=== PATIENT | female | born 1995 | race Two or more races ===

== ENCOUNTER 2018-06-06 23:55 | Emergency (ER) | payer OTHER ==
[~2018-06-06] VITALS: Ht 157.5 cm; Wt 107.9 kg
[2018-06-07 00:01] VITALS: BP 160/85
[2018-06-07] MEDS ORDERED: FLUORESCEIN/BENOXINATE 5 ML DROPS OP ONE (00:30)
== END 2018-06-07 01:20 | disposition home or self-care (01) ==
LOC: ED 06-07 00:19
DX: H18.821 Corneal disorder due to contact lens, right eye (principal)
CPT/HCPCS: 99283

== ENCOUNTER 2020-01-11 17:28 | Outpatient (CLI) | payer OTHER ==
[2020-01-11] MEDS ORDERED: OMNIPAQUE 350 MG/ML, 100ML BOTTLE ONE (18:30)
== END 2020-01-11 23:59 | disposition home or self-care (01) ==
LOC: RAD 17:28
PROVIDERS: ATTEND Nurse Practitioner Family
DX: N83.201 Unspecified ovarian cyst, right side (principal)
CPT/HCPCS: 74177; Q9967